=== PATIENT | male | born 1950 | race Caucasian/White ===

== ENCOUNTER 2017-01-17 16:15 | Inpatient (IN) | payer OTHER ==
[~2017-01-17] VITALS: Ht 177.8 cm; Wt 112.1 kg
[~2017-01-17 16:15] MED LIST: ACIDOPHILUS1 EAC4 PO; ADVAIR 250/501 DISK IH; ADVIL,NUPRIN,M200 MG PO; ADVIL200 MG PO; ALBUTEROL SULF8.5 GM IH; ALDACTONE25 MG PO; ALLERGY RELIEF10 M1 PO; ANALGESIC CREME85 GM TP; ANALGESIC CREME86 GM TP; ASPIRIN BUFFER325 MG PO; ASPIRIN325 MG PO; ATIVAN0.5 MG PO; ATROVENT 00.5 MG/2.5 IH; AUGMENTIN875 MG PO; AVELOX400 MG PO; AVINZA30 MG PO; AZITHROMYCIN250 MG1 PO; BACTRIM,SEPT1 TABLET PO; BUSPAR10 MG PO; CALCIUM 600 +1 EAC1 PO; CARMOL 2085 GM TP; CEFDINIR300 MG PO; CETIRIZINE HCL5 MG PO; CHEST CONG100 MG/5 M PO; CIPRO500 M1 PO; CLARITIN,ALAVAR10 MG PO; CLEAR EYES ITCH15 ML BOTH EYES; COL-RITE100 M1 PO; COLACE100 MG PO; CONSTULOSE10 GM/15 M PO; CORTIZONE-10 PL57 GM TP; CYMBALTA30 MG PO; DALIRESP500 MCG PO; DOCUSATE SODIU100 MG PO; DuoNeb IH; Ecotrin PO; FINASTERIDE5 M1 PO; FINASTERIDE5 MG PO; FLONASE16 G1 BOTH NARES; FLUNISOLIDE25 ML BOTH NARES; FUROSEMIDE20 MG PO; GABAPENTIN300 MG PO; GAS RELIEF 8080 MG PO; GAS RELIEF80 M1 PO; GAS-X80 MG PO; GENERLAC10 GM/15 M PO; GUIATUSS100 MG/5 M PO; HYTRIN10 MG PO; K-DUR10 MEQ PO; LACTULOSE10 GM/151 PO; LASIX20 MG PO; LEVOFLOXACIN500 MG PO; LOPRESSOR25 MG PO; LORAZEPAM0.5 MG PO; LUBRIDERM PO; Lovenox SC; METHADONE10 MG PO; METHOCARBAMOL500 MG PO; MIRTAZAPINE30 MG PO; MORPHINE SULFAT30 M5 PO; MS CONTIN,ORAMO15 M1 PO; MS CONTIN,ORAMO30 MG PO; MSIR15 MG PO; MULTIVITAMINS1 EA10 PO; NEURONTIN300 MG PO; NEURONTIN600 MG PO; NIZORAL 2% CREA15 GM PO; OCEAN NASAL 0.645 ML BOTH NARES; PANTOPRAZOLE SO40 MG PO; POTASSIUM CHLO20 ME1 PO; PREDNISONE20 MG PO; PREDNISONE5 M1 PO; PREDNISONE5 MG PO; PROSCAR5 MG PO; PROTONIX40 MG PO; PROVENTIL,2.5 MG/3 M IH; Protonix PO; Proventil,Ventolin H PO; REMERON15 M2 PO; ROBAXIN500 MG PO; ROBITUSSIN DM118 ML PO; SALINE MIST45 ML BOTH NARES; SARAFEM20 M1 PO; SENOKOT S,PE1 TABLET PO; SERTRALINE HCL100 MG PO; SPIRIVA1 INHALATI IH; SPIRONOLACTONE50 MG PO; SYMBICORT60 INHALAT IH; Solu-MEDROL IV; TERAZOSIN HCL10 MG PO; TOPAMAX25 MG PO; Theo-Dur,Theocron PO; VENTOLIN HFA18 GM IH; VIBRAMYCIN100 MG PO; Vancomycin IV; WOMEN'S DAILY1 EAC2 PO; ZITHROMAX500 MG PO; ZOLOFT50 MG PO; [UNRECOGNIZED DRUG - OTHER] PO; [UNRECOGNIZED DRUG - OTHER] TP
[2017-01-17 16:37] LABS: EOSINOPHIL (%) 0.2 % (0-5); HEMATOCRIT 31.4 % (38.0-50.0); IMMATURE GRANULOCYTE (%) 0.4 % (0.0-0.7); IMMATURE GRANULOCYTE COUNT 0.1 K/uL; INSTRUMENT ABS NEUTROPHIL CT 14.7 K/uL; LYMPHOCYTE COUNT 0.4 K/uL (1.0-2.8); MCH 29.2 PG (29.0-34.0); MCHC 30.3 G/DL (30.0-36.0); MCV 96.6 FL (86-99); MEAN PLAT.VOLUME 9.4 uM^3 (9.0-12.4); MONOCYTE (%) 5.2 % (3-12); MONOCYTE COUNT 0.8 K/uL (0-0.8); NEUTROPHIL (%) 91.8 % (45-76); NEUTROPHIL COUNT 14.7 K/uL (1.8-6.4); PLATELET COUNT 182 K/uL (156-360); RBC DIS.WIDTH-CV 13.2 % (11.8-14.6); RED BLOOD COUNT 3.25 M/uL (4.00-5.50); WHITE BLOOD COUNT 16.1 K/uL (4.1-10.2)
[2017-01-17 16:47] LABS: CHLORIDE 99 mEq/L (99-109); POTASSIUM 4.9 mEq/L (3.7-5.4); SODIUM 138 mEq/L (136-147)
[2017-01-17 16:49] LABS: GLUCOSE 130 mg/dL (70-99)
[2017-01-17 16:50] LABS: ANION GAP 8 MEQ/L (2-14)
[2017-01-17 16:50] LABS: BASE EXCESS 7.5 mEq/L (-3 to +3); BICARBONATE 36.8 mEq/L (22-26); CARBOXY HGB 1.9 % (0-5); PO2 77 mm Hg (80-100)
[2017-01-17 16:51] LABS: COMMENTS - BLOOD GASES A+C+; DEVICE NC; O2 FLOW 4 L/MIN; PCO2 84 mm Hg (35-45); SITE LR; pH 7.25 (7.35-7.45)
[2017-01-17 16:51] LABS: TOTAL BILIRUBIN 0.3 mg/dL (0.0-1.0)
[2017-01-17 16:52] LABS: ALKALINE PHOSPHATASE 85 IU/L (3-129)
[2017-01-17 16:53] LABS: GFR ESTIMATE (CALCULATED) 58 mL/min/
[2017-01-17 16:54] LABS: UREA NITROGEN (BUN) 27 mg/dL (9-23)
[2017-01-17 16:59] LABS: TROP-I INTERPRETATION NEGATIVE; TROPONIN-I < 0.01 ng/mL (0.0-0.30)
[2017-01-17 17:45] LABS: ADD MIUA? YES; BILIRUBIN NEGATIVE; BLOOD NEGATIVE; COLOR AMBER ((YELLOW)); GLUCOSE (STRIP) NEGATIVE; KETONES 5; LEUKOCYTES NEGATIVE; NITRITE NEGATIVE; PROTEIN (STRIP) 30; SPECIFIC GRAVITY 1.023 (1.000-1.030); UROBILINOGEN 0.2 MG/DL (0.2-1.0)
[2017-01-17 18:03] LABS: RED BLOOD CELLS 0-5 /HPF (0-5); WHITE BLOOD CELLS 0-5 /HPF (0-5)
[2017-01-17 18:04] LABS: BACTERIA NONE SEEN /HPF; EPITHELIAL CELLS NONE SEEN /HPF; MUCUS NONE SEEN /LPF; UCUL ADDED? NO
[2017-01-17 18:29] LABS: BASE EXCESS 6.7 mEq/L (-3 to +3); CARBOXY HGB 1.8 % (0-5); PCO2 86 mm Hg (35-45); PO2 78 mm Hg (80-100); pH 7.23 (7.35-7.45)
[2017-01-17 21:37] VITALS: BP 159/61
[2017-01-17 22:00] VITALS: BP 140/57
[2017-01-17 22:53] LABS: METH RESISTANT S AUREUS PCR NEGATIVE (NEGATIVE)
[2017-01-17 23:00] VITALS: BP 137/50
[2017-01-17 23:03] LABS: PROBE CHECK PASS; SPECIMEN PROCESSING CONTROL PASS
[2017-01-18] VITALS (24 sets, daily range): BP systolic 95–143; BP diastolic 40–72
[2017-01-18 04:03] LABS: BASE EXCESS 7.1 mEq/L (-3 to +3); CARBOXY HGB 1.1 % (0-5); METHEMOGLOBIN 1.2 % (0-1.5); PCO2 82 mm Hg (35-45); PO2 84 mm Hg (80-100)
[2017-01-18 04:04] LABS: DEVICE VENT; FI02 40 %; MECHANICAL RATE 12 resp/min; MODE SIMV; PEEP 5 CM/H20; PRES. SUPPORT 12 CM/H2O; SITE LR; TIDAL VOLUME 360 ML; pH 7.25 (7.35-7.45)
[2017-01-18 04:06] LABS: TOTAL RESP RATE 17 resp/min
[2017-01-18 07:55] LABS: EOSINOPHIL (%) 0 % (0-5); HEMATOCRIT 28.2 % (38.0-50.0); IMMATURE GRANULOCYTE (%) 0.7 % (0.0-0.7); IMMATURE GRANULOCYTE COUNT 0.1 K/uL; LYMPHOCYTE COUNT 0.7 K/uL (1.0-2.8); MCH 30.8 PG (29.0-34.0); MCHC 31.2 G/DL (30.0-36.0); MCV 98.6 FL (86-99); MONOCYTE COUNT 0.6 K/uL (0-0.8); NEUTROPHIL (%) 92.6 % (45-76); PLATELET COUNT 207 K/uL (156-360); RBC DIS.WIDTH-CV 13.4 % (11.8-14.6); RBC DIS.WIDTH-SD 48.8 % (39-53); RED BLOOD COUNT 2.86 M/uL (4.00-5.50); WHITE BLOOD COUNT 19.5 K/uL (4.1-10.2)
[2017-01-18 08:19] LABS: ANION GAP 4 MEQ/L (2-14); CHLORIDE 101 MEQ/L (99-109); GFR ESTIMATE (CALCULATED) > 59 mL/min/; GLUCOSE 125 mg/dL (70-99); POTASSIUM 5.4 MEQ/L (3.7-5.4); SAMPLE HEMOLYSIS CHECK 0; SAMPLE ICTERIC CHECK 0; SAMPLE LIPEMIA CHECK 0; SODIUM 139 MEQ/L (136-147); UREA NITROGEN (BUN) 27 mg/dL (9-23)
[2017-01-18 08:20] LABS: TROP-I INTERPRETATION NEGATIVE; TROPONIN-I < 0.01 ng/mL (0.0-0.30)
[2017-01-19] VITALS (12 sets, daily range): BP systolic 100–144; BP diastolic 47–106
[2017-01-19 05:25] LABS: HEMATOCRIT 25.9 % (38.0-50.0); MCH 29.4 PG (29.0-34.0); MCHC 30.9 G/DL (30.0-36.0); MCV 95.2 FL (86-99); MEAN PLAT.VOLUME 10.3 uM^3 (9.0-12.4); PLATELET COUNT 210 K/uL (156-360); RBC DIS.WIDTH-CV 13.4 % (11.8-14.6); RBC DIS.WIDTH-SD 46.7 % (39-53); RED BLOOD COUNT 2.72 M/uL (4.00-5.50); WHITE BLOOD COUNT 12.4 K/uL (4.1-10.2)
[2017-01-19 05:53] LABS: ANION GAP 7 MEQ/L (2-14); CHLORIDE 100 MEQ/L (99-109); GFR ESTIMATE (CALCULATED) > 59 mL/min/; GLUCOSE 114 mg/dL (70-99); POTASSIUM 4.6 MEQ/L (3.7-5.4); SAMPLE HEMOLYSIS CHECK 0; SAMPLE ICTERIC CHECK 0; SAMPLE LIPEMIA CHECK 0; SODIUM 138 MEQ/L (136-147); UREA NITROGEN (BUN) 31 mg/dL (9-23)
[2017-01-20 04:42] VITALS: BP 119/56
[2017-01-20 06:59] LABS: HEMATOCRIT 28.1 % (38.0-50.0); MCH 29.3 PG (29.0-34.0); MCHC 30.6 G/DL (30.0-36.0); MCV 95.6 FL (86-99); MEAN PLAT.VOLUME 10.2 uM^3 (9.0-12.4); PLATELET COUNT 270 K/uL (156-360); RBC DIS.WIDTH-CV 13.5 % (11.8-14.6); RBC DIS.WIDTH-SD 46.8 % (39-53); RED BLOOD COUNT 2.94 M/uL (4.00-5.50); WHITE BLOOD COUNT 10.1 K/uL (4.1-10.2)
[2017-01-20 07:28] LABS: IRON 23 MCG/DL (35-150)
[2017-01-20 08:00] VITALS: BP 110/55
[2017-01-20 20:29] VITALS: BP 115/85
[2017-01-20 23:34] VITALS: BP 91/45
[2017-01-21] VITALS (7 sets, daily range): BP systolic 105–141; BP diastolic 51–74
[2017-01-22 03:34] VITALS: BP 142/64
[2017-01-22 09:14] VITALS: BP 151/74
[2017-01-22 11:44] VITALS: BP 132/80
[2017-01-22 16:09] VITALS: BP 146/79
[2017-01-22 19:38] VITALS: BP 131/56
[2017-01-23] VITALS (7 sets, daily range): BP systolic 110–142; BP diastolic 50–67
[2017-01-24 04:55] VITALS: BP 126/58
[2017-01-24 06:07] LABS: MCH 28.3 PG (29.0-34.0); MCHC 29.3 G/DL (30.0-36.0); MCV 96.5 FL (86-99); MEAN PLAT.VOLUME 9.9 uM^3 (9.0-12.4); PLATELET COUNT 330 K/uL (156-360); RBC DIS.WIDTH-CV 13.4 % (11.8-14.6); RBC DIS.WIDTH-SD 47.3 % (39-53); RED BLOOD COUNT 3.11 M/uL (4.00-5.50); WHITE BLOOD COUNT 12.5 K/uL (4.1-10.2)
[2017-01-24 06:31] LABS: ANION GAP 4 MEQ/L (2-14); CHLORIDE 100 MEQ/L (99-109); GFR ESTIMATE (CALCULATED) > 59 mL/min/; GLUCOSE 97 mg/dL (70-99); POTASSIUM 4.4 MEQ/L (3.7-5.4); SAMPLE HEMOLYSIS CHECK 0; SAMPLE ICTERIC CHECK 0; SAMPLE LIPEMIA CHECK 0; SODIUM 141 MEQ/L (136-147); UREA NITROGEN (BUN) 34 mg/dL (9-23)
[2017-01-24 08:12] VITALS: BP 100/55
[2017-01-24 11:42] VITALS: BP 113/54
[2017-01-24 18:20] VITALS: BP 105/48
[2017-01-24 19:33] VITALS: BP 118/57
[2017-01-24 23:11] VITALS: BP 132/59
[2017-01-25 04:23] VITALS: BP 116/58
[2017-01-25 06:20] LABS: HEMATOCRIT 30.3 % (38.0-50.0); MCH 28.2 PG (29.0-34.0); MCHC 29.4 G/DL (30.0-36.0); MCV 95.9 FL (86-99); MEAN PLAT.VOLUME 9.9 uM^3 (9.0-12.4); PLATELET COUNT 358 K/uL (156-360); RBC DIS.WIDTH-CV 13.2 % (11.8-14.6); RBC DIS.WIDTH-SD 46.4 % (39-53); RED BLOOD COUNT 3.16 M/uL (4.00-5.50); WHITE BLOOD COUNT 11.4 K/uL (4.1-10.2)
[2017-01-25 06:44] LABS: ANION GAP 5 MEQ/L (2-14); CHLORIDE 97 MEQ/L (99-109); GFR ESTIMATE (CALCULATED) > 59 mL/min/; GLUCOSE 74 mg/dL (70-99); POTASSIUM 4.5 MEQ/L (3.7-5.4); SAMPLE HEMOLYSIS CHECK 0; SAMPLE ICTERIC CHECK 0; SAMPLE LIPEMIA CHECK 0; SODIUM 139 MEQ/L (136-147); UREA NITROGEN (BUN) 26 mg/dL (9-23)
[2017-01-25 08:18] VITALS: BP 114/61
[2017-01-25 11:48] VITALS: BP 107/55
[2017-01-25 15:51] VITALS: BP 108/51
[2017-01-25 19:43] VITALS: BP 110/52
[2017-01-25 23:49] VITALS: BP 102/54
[2017-01-26 05:16] LABS: CHLORIDE 97 mEq/L (99-109); POTASSIUM 4.4 mEq/L (3.7-5.4); SODIUM 139 mEq/L (136-147)
[2017-01-26 05:17] LABS: GLUCOSE 80 mg/dL (70-99)
[2017-01-26 05:18] LABS: HEMATOCRIT 28.4 % (38.0-50.0); MCV 93.7 FL (86-99); MEAN PLAT.VOLUME 10.5 uM^3 (9.0-12.4); PLATELET COUNT 294 K/uL (156-360); RBC DIS.WIDTH-CV 13.2 % (11.8-14.6); RBC DIS.WIDTH-SD 45.1 % (39-53); RED BLOOD COUNT 3.03 M/uL (4.00-5.50); WHITE BLOOD COUNT 8.2 K/uL (4.1-10.2)
[2017-01-26 05:19] LABS: ANION GAP 7 MEQ/L (2-14)
[2017-01-26 05:21] LABS: GFR ESTIMATE (CALCULATED) > 59 mL/min/
[2017-01-26 05:22] LABS: UREA NITROGEN (BUN) 26 mg/dL (9-23)
[2017-01-26 08:05] VITALS: BP 109/51
[2017-01-26 11:43] VITALS: BP 125/53; BP 140/74
[2017-01-26] MEDS ORDERED: MS CONTIN,ORAMO15 M1 PO (14:58)
[2017-01-26 16:31] VITALS: BP 104/51
== END 2017-01-26 16:57 | DRG 981 ==
LOC: EME 16:15 → 4WEST 18:48 → EDOF 18:48 → ENRESERV 18:55 → 4WEST 21:27 → ENRESERV 01-19 07:00 → 4WEST 01-19 07:01 → ENRESERV 01-19 14:11 → CANRESERV 01-19 14:19 → ENRESERV 01-19 14:24 → 5SOUTH 01-19 14:55 → ENRESERV 01-23 15:54 → 3EAST 01-23 19:05
PROVIDERS: Emergency Medicine; Hospitalist; Internal Medicine; Internal Medicine Critical Care Medicine; Physician Assistant
DX: J44.1 Chronic obstructive pulmonary disease with (acute) exacerbation (principal); J69.0 Pneumonitis due to inhalation of food and vomit; J96.21 Acute and chronic respiratory failure with hypoxia; J96.22 Acute and chronic respiratory failure with hypercapnia; E87.2 Acidosis; G47.33 Obstructive sleep apnea (adult) (pediatric); I48.91 Unspecified atrial fibrillation; Z99.81 Dependence on supplemental oxygen; Z87.01 Personal history of pneumonia (recurrent); J84.10 Pulmonary fibrosis, unspecified; I25.2 Old myocardial infarction; F41.9 Anxiety disorder, unspecified; F32.9 Major depressive disorder, single episode, unspecified; F43.10 Post-traumatic stress disorder, unspecified; K21.9 Gastro-esophageal reflux disease without esophagitis; Z87.442 Personal history of urinary calculi; S82.851A Displaced trimalleolar fracture of right lower leg, initial encounter for closed fracture; Z23 Encounter for immunization; Z91.14 Patient's other noncompliance with medication regimen; W19.XXXA Unspecified fall, initial encounter; Y92.009 Unspecified place in unspecified non-institutional (private) residence as the place of occurrence of the external cause; D64.9 Anemia, unspecified
CPT/HCPCS: 36600; 70450; 71010; 71275; 73600; 73610; 74230; 76000; 80048; 80053; 81003; 82607; 82803; 83540; 83605; 83880; 84466; 84484; 85025; 85027; 85379; 87040; 87641; 90686; 92610 GN; 92611 GN; 93005; 94002; 94003; 94640; 94640 76; 94660; 94664; 94760; 94799; 97530 GO; 99202; 99281; 99285; C1713; J0456; J0692; J1100; J1170; J1650; J1956; J2250; J2270; J2405; J2543; J2920; J2930; J3010; J3370; J7030; J7050; J7512